=== PATIENT | female | born 1960 | race African-American/Black ===

== ENCOUNTER 2019-04-08 05:08 | Emergency (ER) | payer MEDICAID ==
[~2019-04-08] VITALS: Ht 154.9 cm; Wt 64.0 kg
[~2019-04-08 05:08] MED LIST: ASPI-1393 PO; BENA20TA10 PO; CALC-38 PO; DARU800T PO; DOLU50TA PO; EMTR1TAB12 PO; HYDR12.54 PO; LABE100T5 PO; QUET200T PO; RITO100T PO; SPIR25TA6 PO; TRIC54 GT; UNK HTN MEDS; [UNRECOGNIZED DRUG - OTHER]
[2019-04-08] MEDS ORDERED: KETOROLAC 30MG/ML VIAL IV STA (06:13)
[2019-04-08] MEDS ORDERED: SODIUM CHLORIDE 0.9% 1,000 ML IV ONE (06:13)
[2019-04-08] MEDS ORDERED: METOCLOPRAMIDE HCL 10MG/2ML VIAL IV ONE (06:15)
[2019-04-08] MEDS ORDERED: HYDRALAZINE HCL 50MG TABLET PO ONE (06:30)
[2019-04-08 09:00] VITALS: BP 169/97
== END 2019-04-08 08:30 | disposition home or self-care (01) ==
LOC: ER 05:53
DX: R51 Headache (principal); M54.2 Cervicalgia; M25.512 Pain in left shoulder; I10 Essential (primary) hypertension; E78.5 Hyperlipidemia, unspecified; E78.00 Pure hypercholesterolemia, unspecified; Z96.649 Presence of unspecified artificial hip joint
CPT/HCPCS: 81025; 96374; 96375; 99283; J1885; J2765; J7030